=== PATIENT | male | born 1960 | race Caucasian/White ===

== ENCOUNTER → 2018-09-09 | Outpatient (CLI) | payer OTHER | LOC: CAT 10:43 | DX: N28.1 Cyst of kidney, acquired (principal) ==

== ENCOUNTER → 2019-01-17 | Outpatient (CLI) | payer OTHER | LOC: RAD 16:19 | DX: M54.5 Low back pain (principal); G89.29 Other chronic pain ==

== ENCOUNTER → 2019-02-07 | Outpatient (CLI) | payer OTHER ==
[~2019-02-07] VITALS: Ht 175.3 cm; Wt 77.1 kg
[~2019-02-07] MED LIST: ASPIR 8181 MG PO; CENTRUM SILVER1 EAC4 PO; CRESTOR20 MG PO; FLONASE 0.05%50 MCG NASAL; NABUMETONE 500500 M1 PO; OSTEO BI-FLEX1 EAC1 PO; VITAMIN B-122500 MCG PO; ZEAXANTHIN100 GM PO; ZINC50 M1 PO
[2019-02-07 13:15] VITALS: BP 117/86
--- NOTE | 2019-02-07 13:21 | NUR ---
Pain Clinic Assessment: 1. History of Osteoarthritis: Not Applicable History of Rheumatoid Arthritis: Not Applicable 2. Height: 5 ft. 9 in. 175.3 cm. Weight: 170.0 lb. oz. 77.112 kg. Patient's BMI: 25.1 3. Vital Signs: BP: 117/86 Pulse: 78 Resp: 16 Temp: 02 Sat: 97 ECG Mon: 4. Pain Intensity: 8 5. Fall Risk: Dizziness: Needs help standing or walking: Fallen in the last 3 months: Fall risk comments: 6. Patient on Blood Thinner: None 7. History of Hypertension: N 8. Opioid Therapy greater than 6 weeks: N Opiate Contract Signed: 9. Risk Assessment Tool Provided: 10. Functional Assessment Tool: 34 11. Recreational Drug Use: Never Drug Type: Tobacco Use: Never Smoker Tobacco Type: Amount or Packs/day: How Many Years: Alcohol Use: No Frequency: Quant:
--- NOTE | 2019-02-14 08:14 | HPC ---
[facility] [place] [address] PAIN MANAGEMENT CONSULTATION Name: GABECEASAR DONOHUEN Room #: REG [facility].#: [id number] Admission: 02/07/19 ������������������ Attend Phys: Ambrosio Mcintyre DO Discharge: ������������������ Date of : 64 Report #: [id number] THIS REPORT FOR: //name// CC: Ambrosio Ordaz DATE OF SERVICE: 02/07/2019 REFERRING PHYSICIAN: Dr. Elvis Ordaz CHIEF COMPLAINT: Low back pain, right lower extremity pain with intermittent paresthesias. HISTORY OF PRESENT ILLNESS: As you know, the patient is a very pleasant 58-year-old male who reports acute onset of low back pain, right lower extremity pain that presented on 12/29/2018. The patient denies any specific injury or trauma that may have led to symptom occurrence. He has had a history approximately 5 years ago of similar symptoms diagnosed with lumbar radiculopathy. At that time, he used conservative medication management, rest, relaxation and his pain did improve. The patient states that since 12/29/2018, his pain has remained intense enough that he sought evaluation through his primary care physician. His PCP sent the patient for MRI, which showed changes at the L4-L5 level significant enough that the patient was then referred to our service to discuss treatment options for suspected recurrence of lumbar radiculopathy. The patient indicates today pain is continuous, steady and constant. He describes the pain as aching, gnawing, throbbing, numbness and tingling. Places current pain score at 8/10, daily average at 8/10, worst pain has been at 9/10. The patient states the pain is exacerbated with various activities. Nothing has improved the patient's symptoms except for rest and relaxation. He has been referred to our service to discuss treatment options for suspected lumbar radiculopathy. PAST MEDICAL HISTORY: 1. Seasonal allergies. 2. Dyslipidemia. PAST SURGICAL HISTORY: Right knee surgery. SOCIAL HISTORY: The patient denies tobacco, alcohol, IV or illicit drug use. He is a health care executive. He is working, not receiving workmen's compensation nor is he trying to obtain disability benefits. He is not in litigation in regards to pain. He is unaccompanied at today's visit. [address] [address] PAIN MANAGEMENT CONSULTATION Name: CEASAR BERNAL CHANDAN Room #: REG [facility].#: [id number] Admission: 02/07/19 ������������������ Attend Phys: Ambrosio Mcintyre DO Discharge: ������������������ Date of : 64 Report #: [id number] REVIEW OF SYSTEMS: Positive for wearing corrective eyewear, nocturia, numbness and tingling sensations involving the low back and right lower extremity. All other review of systems negative per 12-point review of systems other than those listed in history of present illness. Pain impact score 34/70 indicating moderate interference of daily activities secondary to pain. ALLERGIES: No reported drug allergies. CURRENT MEDICATIONS: Osteo Bi-Flex 1 tab per day, Flonase 50 mcg 1 spray each nostril per day, Centrum Silver 1 tab per day, vitamin B12 2500 mcg per day, zinc 50 mg per day, lovastatin 20 mg per day, aspirin 81 mg per day. IMAGING: MRI of lumbar spine obtained on 01/26/2019 shows L1-L2 unremarkable, L2-L3 unremarkable, L3-L4 shows mild bilateral facet arthropathy and ligamentum flavum hypertrophy, no central canal or neural foraminal stenosis. L4-L5, broad-based right foraminal disk protrusion, which abuts the exiting L4 right nerve root and contributes to mild right neural foraminal stenosis. There is mild bilateral facet arthropathy and ligamentum flavum hypertrophy, no central canal stenosis. L5-S1, mild bilateral facet arthropathy. No central canal neural foraminal stenosis. PHYSICAL EXAMINATION: VITAL SIGNS: Blood pressure 117/86, pulse is 78, respiratory rate 16 and unlabored, the patient is 97% on room air. Height 5 feet 9 inches tall, weight 170 pounds, BMI calculated at 25.1. GENERAL: Well-developed, well-nourished, well-hydrated 58-year-old male appearing his stated age, placing current pain score 8/10. HEENT: Normocephalic, atraumatic. Pupils are equal, round and reactive to light. Extraocular muscles are intact. Sclerae nonicteric without injection. NEUROLOGIC: Cranial nerves 2-12 grossly intact. Speech fluent. The patient deemed an excellent historian. LUNGS: Clear. No wheezes, rhonchi or rales. CARDIOVASCULAR: Regular. No appreciable gallop, no rub. ABDOMEN: Soft, nontender, nondistended, normoactive bowel sounds. EXTREMITIES: Show no clubbing, no cyanosis and no edema. MUSCULOSKELETAL: Lower extremity strength appears symmetrical at 5/5. He is intact to light touch from L1 through S2 dermatomes. Seated straight leg raising negative. Supine straight leg raising positive for right. FELIX test is negative. Modified Gaenslen's positive for axial low back pain. Ankle clonus negative. Babinski is negative. Gait appears normal. Lumbar provocation testing is met with slight increase in right axial back pain over what appears to be the L3-L4 facet joint. There is also noted pain over the L5-S1 facet joint on the right side. [facility] [address] [place] [address] PAIN MANAGEMENT CONSULTATION Name: CEASAR BERNAL Room #: REG [facility].#: [id number] Admission: 02/07/19 ������������������ Attend Phys: Ambrosio Mcintyre DO Discharge: ������������������ Date of : 64 Report #: [id number] ASSESSMENT: 1. Symptomatic lumbar radiculopathy. 2. Displacement of lumbar intervertebral disk with radiculopathy. 3. Neural foraminal stenosis of lumbar spine. 4. Lumbar degeneration. 5. Intractable pain. PLAN: 1. The patient has been referred to our service by his primary care physician, Dr. Elvis Ordaz, for evaluation for suspected lumbar radiculopathy. The patient and I had a very long discussion today about the findings of his MRI. He does have changes at the L4-L5 level, which does correlate with the patient's symptoms of radiculopathy radiating down the right leg. It is also noted that there is a change at the right pedicle showing a mild stress reaction, which does correlate with a palpatory findings today on physical exam. After the discussion of the MRI, we discussed treatment options for lumbar radiculopathy. The following was discussed with the patient today. We discussed physical therapy, stretching exercises and core strengthening as a treatment option. We discussed medication management, adding a neuropathic pain medication and a low-dose nonsteroidal anti-inflammatory to gain effect with anti-inflammatory medication management. We discussed epidural injections under fluoroscopic guidance. We also discussed spinal cord stimulator therapy and surgical options. After reviewing risks and benefits of all proposed treatment options, the patient chose to move forward with lumbar epidural injection under fluoroscopic guidance. 2. The patient was advised that third libertarian payer restrictions require that authorization be obtained before the patient can undergo an epidural injection. We will begin the authorization process immediately, contact the patient once this has been completed so he can undergo the first in a series of lumbar epidural injections. We will keep the patient apprised of our progress and gaining the prior authorization. Once this has been achieved, we will have him return as quickly as possible to undergo this injection to determine if his symptoms will be improved with a lumbar epidural injection. 3. The patient was provided a prescription of nabumetone 500 mg dose 1 tab p.o. t.i.d. with meals. We recommend the patient to stop all other nonsteroidal anti-inflammatories while on this medication. He will watch for dyspepsia, worsening of blood pressure, lower extremity edema. If he notes any side effects, discontinue immediately and call for further instructions. 4. We will see the patient back in followup visit once we have achieved authorization for the patient to undergo the first in a series of lumbar epidural injections. 5. We wish to thank Dr. Elvis Ordaz for the referral of this patient to our clinic. We will keep you apprised of his response to treatment as we address his lumbar radicular symptoms. [address] [address] PAIN MANAGEMENT CONSULTATION Name: CEASAR BERNAL Room #: [facility] [id number] Admission: 02/07/19 ������������������ Attend Phys: Ambrosio Mcintyre DO Discharge: ������������������ Date of : 64 Report #: [id number] Again, we wish to thank you for the opportunity to see this patient in consultation. ��������������������������������������������� <ELECTRONICALLY SIGNED> ���������������������������������������� By: Ambrosio Mcintyre DO ��������������������������������������������� 02/14/19 0814 [id number] Ambrosio Mcintyre DO /nt
== END ==
LOC: PAIN 07:15
DX: M51.16 Intervertebral disc disorders with radiculopathy, lumbar region (principal); M48.062 Spinal stenosis, lumbar region with neurogenic claudication; G89.4 Chronic pain syndrome; Z79.899 Other long term (current) drug therapy

== ENCOUNTER → 2019-10-17 | Outpatient (CLI) | payer OTHER ==
[~2019-10-17] VITALS: Ht 175.3 cm; Wt 76.9 kg
[~2019-10-17] MED LIST changes: +ZYRTEC10 M4 PO
[2019-10-17 08:19] VITALS: BP 142/96
--- NOTE | 2019-10-17 08:36 | NUR ---
Pain Clinic Assessment: 1. History of Osteoarthritis: RIGHT KNEE History of Rheumatoid Arthritis: DENIES 2. Height: 5 ft. 9 in. 175.3 cm. Weight: 169.6 lb. oz. 76.930 kg. Patient's BMI: 25.0 3. Vital Signs: BP: 142/96 Pulse: 69 Resp: 16 Temp: 02 Sat: 97 ECG Mon: 4. Pain Intensity: 9 UPPER BACK 5. Fall Risk: Dizziness: N Needs help standing or walking: N Fallen in the last 3 months: N Fall risk comments: 6. Patient on Blood Thinner: None 7. History of Hypertension: N 8. Opioid Therapy greater than 6 weeks: N Opiate Contract Signed: 9. Risk Assessment Tool Provided: 10. Functional Assessment Tool: 34 11. Recreational Drug Use: Never Drug Type: Tobacco Use: Never Smoker Tobacco Type: Amount or Packs/day: How Many Years: Alcohol Use: No Frequency: Quant:
--- NOTE | 2019-10-17 16:27 | HPC ---
[facility] [address] [place] [address] PAIN MANAGEMENT CONSULTATION Name: CEASAR BERNALN Room #: REG [facility].#: [id number] Admission: 10/17/19 Attend Phys: Ambrosio Mcintyre DO Discharge: Date of : 64 Report #: [id number] THIS REPORT FOR: //name// CC: Ambrosio Ordaz MD DATE OF SERVICE: 10/17/2019 CHIEF COMPLAINT: Upper back pain. HISTORY OF PRESENT ILLNESS: As you know, the patient is a very pleasant 59-year-old male who returns today in followup visit with myofascial symptoms involving the right upper back related to the trapezius and rhomboids on the right. He has deep tenderness to palpation in the area and muscle spasming. He has been trialled with methocarbamol and steroids, but this did not provide much improvement. He was referred back to our clinic to discuss the possibility of treatment for what appears to be trigger point injections. The patient places current pain score at 8/10. States he is unable to go about his activities of daily living due to this ongoing pain issues. He describes the pain as constant, aching, throbbing and gnawing. No radicular component. He returns today to discuss this right upper back pain, which began spontaneously. No inciting injury or trauma. ALLERGIES: No reported drug allergies. CURRENT MEDICATIONS: Osteo Bi-Flex 1 tab per day, Flonase 1 spray each nostril per day, Centrum Silver 1 tab per day, vitamin B12 2500 mcg per day, zinc 50 mg per day, lovastatin 20 mg per day, aspirin 81 mg per day, methocarbamol 500 mg twice a day. SOCIAL HISTORY: The patient denies tobacco, alcohol, IV or illicit drug use. 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 IMAGING: No new imaging available. PHYSICAL EXAMINATION: VITAL SIGNS: Blood pressure 117/86, pulse 78, respiratory rate 16 and unlabored. The patient is 97% on room air. Height 5 feet 9 inches tall, weight 170 pounds, BMI calculated 25.1. GENERAL: Well-developed, well-nourished, well-hydrated 59-year-old male appearing stated age, pain is rated around 8/10. HEENT: Normocephalic, atraumatic. Pupils equal, round, reactive to light. EXTREMITIES: Show no clubbing, no cyanosis, no edema. MUSCULOSKELETAL: The patient has palpatory tenderness to the paraspinal [address] [address] PAIN MANAGEMENT CONSULTATION Name: CEASAR BERNAL Room #: REG [facility]#: [id number] Admission: 10/17/19 Attend Phys: Ambrosio Mcintyre DO Discharge: Date of : 64 Report #: [id number] musculature of the upper thoracic area. This is adjacent to the medial aspect of the scapula correlating with the rhomboid muscles and the trapezius. The patient has 7 trigger points, multiple tender points in the area. There are no issues with cervical rotation. Negative Spurling's. ASSESSMENT: 1. Myofascial pain. 2. Muscle spasms. 3. Upper back pain. PLAN: 1. The patient has returned today in followup visit with what appears to be myofascial symptoms involving the medial scapula and lateral upper thoracic area. The area correlates to the rhomboids and the trapezius. He has 7 specific trigger points and multiple tender points in the area. He has been trialled on conservative treatment with steroids and methocarbamol with no efficacy. He was referred back to our clinic to discuss options for treatment. We discussed with the patient the following. We discussed physical therapy, stretching exercises and the use of either a TENS unit or myofascial release techniques. We discussed acupuncture therapy as a possible treatment option. We discussed medication management. We also discussed trigger point injections, which can be quite beneficial. After reviewing risks and benefits of all proposed treatment options, the patient chose to undergo trigger point injections. 2. The patient was advised the risks and benefits of trigger point injections. These risks include but are not necessarily limited to bleeding, bruising, infection, worsening pain, no relief of pain, also risk of temporary or permanent muscle weakness, temporary or permanent nerve damage, pneumothorax, and . The patient states he understood and wished to proceed. 3. No medication changes made at today's visit. The patient will continue current medical therapy as prior prescribed. 4. We will see the patient back in followup visit on an as needed basis for myofascial pain and to discuss treatment options for his low back and right lower extremity symptoms. PROCEDURE NOTE: DESCRIPTION OF PROCEDURE: Trigger point injections. After obtaining written consent, the patient was placed in prone position. By palpating using a single finger, 7 trigger points were identified that reproduced the patient's typical radiating pain pattern. Trigger points were located in the rhomboids and trapezius on the right. Each of the target sites of injection were cleansed with chlorhexidine. A 27-gauge 1-1/4-inch needle was advanced towards each trigger point until the patient's typical radiating pain pattern was reproduced. After negative aspiration for heme, 1 mL of solution [address] [address] PAIN MANAGEMENT CONSULTATION Name: CEASAR BERNAL [id number] Admission: 10/17/19 Attend Phys: Ambrosio Mcintyre DO Discharge: Date of : 64 Report #: [id number] containing 1 mL, 40 mg per mL, 40 mg total triamcinolone along with 6 mL of bupivacaine 0.5% was injected in fanned out distribution. Needle injection sites were then covered with sterile bandages. The patient tolerated procedure well, carefully escorted to recovery room in stable condition. No apparent complications. After meeting our discharge criteria, the patient discharged home. <ELECTRONICALLY SIGNED> By: Ambrosio Mcintyre DO 10/17/19 [id number] [id number] Ambrosio Mcintyre DO /nt
== END | disposition home or self-care (01) ==
LOC: PAIN 06:43
DX: M79.18 Myalgia, other site (principal); Z79.899 Other long term (current) drug therapy; Z98.890 Other specified postprocedural states; Z79.82 Long term (current) use of aspirin